=== PATIENT | male | born 1945 | race Two or more races ===

== ENCOUNTER 2017-07-04 11:48 | Inpatient (IN) | payer MEDICARE ==
[~2017-07-04] VITALS: Ht 170.2 cm; Wt 102.1 kg
[2017-07-04] MEDS ORDERED: CLINDAMYCIN 300MG 50 ML IV STA (12:33)
[2017-07-04] MEDS ORDERED: PIPER-TAZ 3.375 GM 50 ML IV STA (12:33)
[2017-07-04 12:37] LABS: BASOPHILS # (AUTO) 0.1 (0.0-0.1); BASOPHILS % 0.4 % (0.0-1.0); EOSINOPHILS # (AUTO) 0.3 (0.0-0.4); EOSINOPHILS % 1.8 % (0.0-6.0); HEMATOCRIT 35.8 % (38.2-49.6); HEMOGLOBIN 11.8 g/dL (14.0-18.0); LYMPHOCYTES # (AUTO) 0.8 (1.0-3.2); LYMPHOCYTES % 5.9 % (18.0-39.1); MEAN CORPUSCULAR HEMOGLOBIN 27.9 pg (28-32); MEAN CORPUSCULAR VOLUME 84.6 fL (81-99); MONOCYTES # (AUTO) 0.7 (0.2-0.8); MONOCYTES % 4.9 % (4.4-11.3); NEUTROPHILS # (AUTO) 12.4 (2.1-6.9); NEUTROPHILS % 86.4 % (38.7-80.0); PLATELET COUNT 365 x10e3/uL (140-360); RED BLOOD COUNT 4.23 x10e6/uL (4.3-5.7); RED CELL DISTRIBUTION WIDTH 13.5 % (11.7-14.4)
[2017-07-04 12:51] LABS: ALBUMIN 2.9 g/dL (3.5-5.0); ALBUMIN/GLOBULIN RATIO 0.6 (0.8-2.0); ANION GAP 13.4 mmol/L (8-16); CREATININE, SERUM 1.38 mg/dL (0.72-1.25); POTASSIUM 4.4 mmol/L (3.5-5.1)
[2017-07-04] MEDS ORDERED: SODIUM CHLORIDE FLUSH 10 ML SYR INJ PRN (13:45)
[2017-07-04] MEDS ORDERED: DEXTROSE 50% SYRINGE 50 ML IV PRN (13:45)
[2017-07-04 13:53] LABS: CLARITY,URINE CLEAR (CLEAR); COLOR,URINE YELLOW (YELLOW); KETONES,URINE NEGATIVE (NEGATIVE); LEUKOCYTE ESTERASE ,URINE NEGATIVE (NEGATIVE); NITRITE,URINE NEGATIVE (NEGATIVE); PROTEIN,URINE DIPSTICK NEGATIVE (NEGATIVE); URINE UROBILINOGEN 0.2 mg/dL (0.2 - 1)
[2017-07-04 13:54] LABS: BILIRUBIN,URINE NEGATIVE (NEGATIVE)
[2017-07-04] MEDS ORDERED: PIPER-TAZ 3.375 GM 50 ML IV SCH (14:00)
[2017-07-04 14:11] LABS: BACTERIA,URINE RARE /HPF; EPITHELIAL CELLS,URINE RARE /LPF
[2017-07-04] MEDS: PIPER-TAZ 3.375 GM 100 ML IV SCH ×2 (14:23→22:00)
[2017-07-04] MEDS: INSULIN REGULAR, HUMAN 100 UNIT/1 ML 3ML VIAL SQ SCH ×2 (16:30→21:20)
[2017-07-04 17:02] VITALS: BP 156/95
[2017-07-04] MEDS ORDERED: PHENYLEPHRINE HCL 1% 10 MG/ML VIAL ONE (17:14)
[2017-07-04] MEDS: CLINDAMYCIN 300MG 50 ML IV SCH ×2 (18:03→23:35)
[2017-07-04 18:07] VITALS: BP 156/95
[2017-07-04 18:13] VITALS: BP 156/95
[2017-07-04] MEDS ORDERED: FENOFIBRATE145 MG PO (18:46)
[2017-07-04] MEDS ORDERED: CLOPIDOGREL75 MG PO (18:49)
[2017-07-04] MEDS ORDERED: ASPIR 8181 MG PO (18:49)
[2017-07-04] MEDS ORDERED: ALPRAZOLAM1 MG PO (18:49)
[2017-07-04] MEDS ORDERED: TAMSULOSIN HCL0.4 MG PO (18:49)
[2017-07-04] MEDS ORDERED: ATORVASTATIN CA10 MG PO (18:49)
[2017-07-04] MEDS ORDERED: PANTOPRAZOLE SO40 MG PO (18:49)
[2017-07-04] MEDS ORDERED: LYRICA75 MG (18:49)
[2017-07-04] MEDS ORDERED: LOSARTAN POTAS100 MG PO (18:49)
[2017-07-04 19:25] VITALS: BP 143/63
[2017-07-04 19:35] VITALS: BP 160/69
[2017-07-04] MEDS: ALPRAZOLAM 1 MG TAB PO SCH (20:47)
[2017-07-04] MEDS ORDERED: SODIUM CHLORIDE 0.9% 250ML 250 ML ONE (21:39)
[2017-07-04] MEDS: HYDROCODONE/APAP 10MG-325MG TAB PO PRN (23:09)
[2017-07-05] VITALS (8 sets, daily range): BP systolic 115–143; BP diastolic 58–71
[2017-07-05] MEDS: PIPER-TAZ 3.375 GM 100 ML IV SCH ×3 (05:40→22:05)
[2017-07-05] MEDS: CLINDAMYCIN 300MG 50 ML IV SCH ×3 (06:40→18:00)
[2017-07-05] MEDS: INSULIN REGULAR, HUMAN 100 UNIT/1 ML 3ML VIAL SQ SCH (07:30)
[2017-07-05] MEDS: ALPRAZOLAM 1 MG TAB PO SCH ×3 (09:00→22:05)
[2017-07-05] MEDS: HYDROCODONE/APAP 10MG-325MG TAB PO PRN ×3 (09:45→18:39)
[2017-07-05] MEDS: SENNOSIDES 8.6 MG TAB PO SCH ×2 (11:15→17:00)
[2017-07-05] MEDS ORDERED: DEXTROSE 50% SYRINGE 50 ML IV PRN (11:15)
[2017-07-05] MEDS: CELECOXIB 200 MG CAP PO SCH ×2 (11:15→17:00)
[2017-07-05] MEDS: INSULIN LISPRO 100 UNIT/1 ML 3ML VIAL SQ SCH ×4 (11:30→21:00)
[2017-07-05] MEDS ORDERED: INSULIN DETEMIR 100 UNIT/ML PEN SQ ONE (12:00)
--- NOTE | 2017-07-05 15:22 | History and Physical ---
PRIMARY CARE PROVIDER: Dr. Quirino Long ENDOSCOPY SPECIALTY TECHNICIAN: Dr. Brandon Rios CHIEF COMPLAINT: Left scrotal swelling, epididymitis and orchitis for the past 3 months. Failed outpatient treatment with oral antibiotics and multiple urologist consultants saw the patient. Baseline elevated blood sugar, uncontrolled diabetes with diet compliancy, drinking soda. A1c per patient is greater than 10. HISTORY: This 71-year-old male with left scrotal swelling, redness and pain consistent with infection in the scrotum, epididymitis and orchitis on examination by Dr. Brandon Rios. The patient failed outpatient treatment. His blood sugar is uncontrolled with both noncompliance with diet and with elevated blood sugar. The patient is compliant with his medication, however, may not be enough per the patient and also due to infection. Patient has poor insight into his condition. He is stating that the swelling is worse since he was admitted to the hospital within 24 hours. Discussed with patient and explained that antibiotic may need some time to work with respect to his infection treatment and also diabetic control. PAST MEDICAL HISTORY 1. Right scrotal infection that was resolved. 2. Uncontrolled diabetes for many years. 3. Morbid obesity. 4. Hypertension. 5. Hyperlipidemia. 6. Diabetic neuropathy. 7. Benign prostatic hyperplasia. 8. Peripheral vascular disease. 9. Chronic obstructive pulmonary disease. 10. Coronary disease with previous stent placement. SOCIAL HISTORY: Patient was a former smoker. No significant alcohol consumption. He lives at home. ALLERGIES: NO KNOWN ALLERGIES. MEDICATIONS: Xanax, aspirin, Lipitor, Plavix, fenofibrate, losartan, Protonix, Lyrica, Flomax. Insulin at home per patient is Tresiba and Victoza. REVIEW OF SYSTEMS: Left scrotal swelling and pain. No chest pain. No shortness of breath. PHYSICAL EXAMINATION GENERAL: The patient has left scrotal pain but not in any respiratory distress. VITAL SIGNS: Temperature is 99. Blood pressure 170/87. Pulse rate is 115, now down to 87. HEENT: Normocephalic, atraumatic, anicteric. NECK: Supple grossly. PULMONARY: Diminished breath sounds. Minimal rhonchi in bilateral lungs. CARDIOVASCULAR: Tachycardia. ABDOMEN: Soft, obese. EXTREMITIES: No cyanosis or edema. Left scrotum is very swollen, very tender, redness and significant phlegmon. NEUROLOGIC: No focal deficit other than diabetic neuropathy. WBC is 14.3, hemoglobin 11.8, hematocrit 36, platelets 265. Chemistries: Sodium 133, potassium 4.4, chloride 100, bicarb 24. BUN is 22 and creatinine 1.4. Glucose is 375. IMPRESSION 1. Left orchitis, edematous with scrotal cellulitis and infection with phlegmon that will develop into an abscess. 2. Uncontrolled diabetes. 3. Obesity. 4. Noncompliance to diet. PLAN: Tighter control of blood sugar. Obtain hemoglobin A1c. IV antibiotics. Dr. Brandon Rios has seen the patient. Will monitor the patient closely. Will get the patient to see a channel man upon discharge. Continue with IV antibiotics. Job#: [id number]
[2017-07-05] MEDS: TAMSULOSIN HCL 0.4 MG CAP PO SCH (16:30)
[2017-07-05] MEDS: ENOXAPARIN SOD INJ 40 MG/0.4 ML SYR SC SCH (17:00)
[2017-07-05] MEDS: PREGABALIN 75 MG CAP PO SCH (17:00)
[2017-07-05] MEDS ORDERED: INSULIN DETEMIR 100 UNIT/ML PEN SQ SCH (21:00)
[2017-07-05] MEDS: FENOFIBRATE 145 MG TAB PO SCH (21:00)
[2017-07-05] MEDS ORDERED: ATORVASTATIN 10 MG TAB PO SCH (21:00)
[2017-07-06] MEDS: CLINDAMYCIN 300MG 50 ML IV SCH ×2 (00:55→06:38)
[2017-07-06 04:00] VITALS: BP 138/63
[2017-07-06] MEDS: PIPER-TAZ 3.375 GM 100 ML IV SCH ×3 (05:00→21:33)
[2017-07-06] MEDS: PANTOPRAZOLE SOD 40 MG TABEC PO SCH (07:30)
[2017-07-06] MEDS: INSULIN LISPRO 100 UNIT/1 ML 3ML VIAL SQ SCH ×7 (07:30→21:00)
[2017-07-06 07:42] LABS: BASOPHILS % 0.2 % (0.0-1.0); EOSINOPHILS # (AUTO) 0.4 (0.0-0.4); EOSINOPHILS % 2.9 % (0.0-6.0); HEMOGLOBIN 10.4 g/dL (14.0-18.0); LYMPHOCYTES # (AUTO) 1.3 (1.0-3.2); LYMPHOCYTES % 9.9 % (18.0-39.1); MEAN CORPUSCULAR HEMOGLOBIN 27.7 pg (28-32); MEAN CORPUSCULAR HGB CONC 32.5 g/dL (31-35); MEAN CORPUSCULAR VOLUME 85.3 fL (81-99); MONOCYTES # (AUTO) 0.8 (0.2-0.8); MONOCYTES % 5.9 % (4.4-11.3); NEUTROPHILS # (AUTO) 10.6 (2.1-6.9); NEUTROPHILS % 80.6 % (38.7-80.0); PLATELET COUNT 311 x10e3/uL (140-360); RED BLOOD COUNT 3.75 x10e6/uL (4.3-5.7); RED CELL DISTRIBUTION WIDTH 13.6 % (11.7-14.4)
[2017-07-06 07:57] VITALS: BP 102/51
[2017-07-06] MEDS: CELECOXIB 200 MG CAP PO SCH ×2 (08:00→17:00)
[2017-07-06 08:21] LABS: ANION GAP 12.4 mmol/L (8-16); CALCIUM 9.2 mg/dL (8.4-10.2); CREATININE, SERUM 1.6 mg/dL (0.72-1.25); POTASSIUM 4.4 mmol/L (3.5-5.1)
[2017-07-06] MEDS: LOSARTAN POTASSIUM 100 MG TAB PO SCH (08:27)
[2017-07-06] MEDS: PREGABALIN 75 MG CAP PO SCH ×2 (08:28→21:32)
[2017-07-06] MEDS: SENNOSIDES 8.6 MG TAB PO SCH ×2 (08:28→17:00)
[2017-07-06] MEDS: ALPRAZOLAM 1 MG TAB PO SCH ×3 (08:31→21:33)
[2017-07-06] MEDS: VANCOMYCIN 1GM/NS 250 ML 250 ML IV SCH ×2 (11:00→23:00)
[2017-07-06] MEDS ORDERED: HYDROMORPHONE 1MG/1ML INJ IV PRN (11:00)
[2017-07-06 12:04] VITALS: BP 147/70
[2017-07-06 16:06] VITALS: BP 118/57
[2017-07-06] MEDS: TAMSULOSIN HCL 0.4 MG CAP PO SCH (16:30)
[2017-07-06] MEDS: ENOXAPARIN SOD INJ 40 MG/0.4 ML SYR SC SCH (17:00)
[2017-07-06 20:00] VITALS: BP 159/76
[2017-07-06] MEDS: INSULIN DETEMIR 100 UNIT/ML PEN SQ SCH (21:00)
[2017-07-06] MEDS: ATORVASTATIN 40 MG TAB PO SCH (21:32)
[2017-07-06] MEDS: FENOFIBRATE 145 MG TAB PO SCH (21:33)
[2017-07-07] VITALS (7 sets, daily range): BP systolic 92–134; BP diastolic 56–71
[2017-07-07] MEDS: HYDROMORPHONE 2MG/ML INJ IV PRN ×3 (01:00→21:50)
[2017-07-07] MEDS: PIPER-TAZ 3.375 GM 100 ML IV SCH ×3 (05:49→21:52)
[2017-07-07] MEDS ORDERED: INSULIN REGULAR, HUMAN 100 UNIT/1 ML 3ML VIAL ONE (07:04)
[2017-07-07 07:06] LABS: BASOPHILS # (AUTO) 0.1 (0.0-0.1); BASOPHILS % 0.5 % (0.0-1.0); EOSINOPHILS # (AUTO) 0.4 (0.0-0.4); EOSINOPHILS % 2.7 % (0.0-6.0); HEMATOCRIT 31.9 % (38.2-49.6); HEMOGLOBIN 10.1 g/dL (14.0-18.0); LYMPHOCYTES # (AUTO) 1.4 (1.0-3.2); LYMPHOCYTES % 9.4 % (18.0-39.1); MEAN CORPUSCULAR HEMOGLOBIN 27.2 pg (28-32); MEAN CORPUSCULAR HGB CONC 31.7 g/dL (31-35); MONOCYTES # (AUTO) 0.9 (0.2-0.8); MONOCYTES % 6.2 % (4.4-11.3); NEUTROPHILS % 80.3 % (38.7-80.0); PLATELET COUNT 338 x10e3/uL (140-360); RED BLOOD COUNT 3.71 x10e6/uL (4.3-5.7); RED CELL DISTRIBUTION WIDTH 13.7 % (11.7-14.4)
[2017-07-07 07:39] LABS: ANION GAP 12.1 mmol/L (8-16); CALCIUM 8.9 mg/dL (8.4-10.2); CREATININE, SERUM 1.73 mg/dL (0.72-1.25); POTASSIUM 4.1 mmol/L (3.5-5.1)
[2017-07-07] MEDS ORDERED: BUPIVACAINE 0.25% 30ML SDV INJ ONE (07:41)
[2017-07-07] MEDS ORDERED: BUPIVACAINE 0.25%/EPI 30ML SDV INJ ONE (07:41)
[2017-07-07] MEDS: ALPRAZOLAM 1 MG TAB PO SCH ×2 (09:00→15:00)
[2017-07-07] MEDS: PREGABALIN 75 MG CAP PO SCH ×2 (09:30→16:30)
[2017-07-07] MEDS: LOSARTAN POTASSIUM 100 MG TAB PO SCH (09:30)
[2017-07-07] MEDS: SENNOSIDES 8.6 MG TAB PO SCH ×2 (09:30→16:30)
[2017-07-07] MEDS: INSULIN LISPRO 100 UNIT/1 ML 3ML VIAL SQ SCH ×7 (09:30→21:00)
[2017-07-07] MEDS: PANTOPRAZOLE SOD 40 MG TABEC PO SCH (09:30)
[2017-07-07] MEDS: HYDROCODONE/APAP 10MG-325MG TAB PO PRN (10:10)
[2017-07-07] MEDS: VANCOMYCIN 1GM/NS 250 ML 250 ML IV SCH ×2 (11:00→23:10)
[2017-07-07] MEDS ORDERED: PROPOFOL IV EMULSION 10 MG/ML 20 ML VIAL ONE (14:21)
[2017-07-07] MEDS ORDERED: ONDANSETRON HCL INJ 2 MG/ML VIAL ONE (14:21)
[2017-07-07] MEDS ORDERED: LIDOCAINE HCL 2% LOCAL INJ 5 ML SDV VIAL INJ ONE (14:21)
[2017-07-07] MEDS ORDERED: SEVOFLURANE INHAL SOLN 250 ML PEN BTL ONE (14:21)
--- NOTE | 2017-07-07 14:54 | Consultation ---
DATE OF CONSULTATION: July 07, 2017 INFECTIOUS DISEASE CONSULTATION REASON FOR CONSULTATION: Scrotal abscess. HISTORY OF PRESENT ILLNESS: This patient, who is a very pleasant 71-year-old male who has history of obesity, history of hypertension, hyperlipidemia, diabetes mellitus, diabetic neuropathy, benign prostatic hypertrophy, peripheral vascular disease, chronic obstructive pulmonary disease, coronary artery disease status post stent placement, comes in with redness and swelling of the scrotum mainly on the left side. The patient had epididymitis and orchitis 3 months ago. He apparently was taking oral antibiotic. He has been seen by several urologists. Patient was finally admitted, underwent debridement. Patient was seen by Dr. Rios and underwent I\T\D. Infectious Disease was consulted today. Patient is telling me he had this for 3 months, but recently it is getting really red and swollen and there was pus draining when he first came. He underwent I\T\D earlier today. He is feeling much better. The dressing is on, fresh from the OR. PAST MEDICAL HISTORY: Obesity, right scrotal infection that was resolved before, uncontrolled diabetes mellitus, hypertension, hyperlipidemia, neuropathy, COPD, coronary artery disease. PAST SURGICAL HISTORY: As above. ALLERGIES: NKA. SOCIAL HISTORY: He denies smoking, drug abuse, alcohol abuse. FAMILY HISTORY: Hypertension and diabetes. MEDICATION: He is on Xanax, aspirin, Lipitor, Plavix, losartan, Flomax, insulin. REVIEW OF SYSTEMS: At the present time, he is doing well. HEENT: There is no headache, visual changes, hearing changes. GI: There is no nausea, no vomiting, no diarrhea. CARDIAC: There is no arrhythmia. NEURO: No seizure activity. SKIN: There are no other rashes. JOINTS: There is no erythema or edema. The patient's laboratory data: His blood cultures are still pending, his wound culture still pending. His white count is 15, hemoglobin 10.1, hematocrit 31. Sodium 135, potassium 4.0, creatinine 1.73. He is currently on insulin, vancomycin, Lyrica, Protonix, Cozaar, piperacillin/tazobactam, Dilaudid. PHYSICAL EXAMINATION GENERAL: He is alert, oriented, does not seem to be in acute distress. VITAL SIGNS: Stable. Currently afebrile. HEENT: He does not appear icteric. NECK: Supple. CHEST: Clear. HEART: S1 and S2. No S3 or S4, no murmur. ABDOMEN: Soft, obese. EXTREMITIES: No edema. SCROTAL AREA: There is erythema, there is edema. IMPRESSION: Abscess status post irrigation and debridement, failed oral antibiotic. I think because of his obesity probably. Concerned about resistance. Will get a central line in him. To get intravenous antibiotic. Will consult IR. Will follow with a vancomycin trough. Will follow with you. Job#: [id number] EV
[2017-07-07] MEDS: TAMSULOSIN HCL 0.4 MG CAP PO SCH (16:30)
[2017-07-07] MEDS ORDERED: MIDAZOLAM HCL 2 MG/2 ML VIAL ONE (19:45)
[2017-07-07] MEDS ORDERED: FENTANYL CITRATE/PF 100MCG/2 ML INJ ONE (19:45)
[2017-07-07] MEDS: INSULIN DETEMIR 100 UNIT/ML PEN SQ SCH (21:00)
[2017-07-07] MEDS: ATORVASTATIN 40 MG TAB PO SCH (21:52)
[2017-07-07] MEDS: FENOFIBRATE 145 MG TAB PO SCH (21:52)
[2017-07-07] MEDS ORDERED: SODIUM CHLORIDE 0.9% 250ML 250 ML ONE (23:09)
[2017-07-08] VITALS (7 sets, daily range): BP systolic 103–125; BP diastolic 60–72
[2017-07-08] MEDS: ALPRAZOLAM 1 MG TAB PO SCH ×4 (02:55→21:00)
[2017-07-08] MEDS: HYDROCODONE/APAP 10MG-325MG TAB PO PRN ×2 (05:00→12:30)
[2017-07-08] MEDS: HYDROMORPHONE 2MG/ML INJ IV PRN ×2 (05:19→22:30)
[2017-07-08] MEDS: PIPER-TAZ 3.375 GM 100 ML IV SCH (06:17)
[2017-07-08] MEDS: INSULIN LISPRO 100 UNIT/1 ML 3ML VIAL SQ SCH ×7 (07:45→21:00)
[2017-07-08] MEDS: PANTOPRAZOLE SOD 40 MG TABEC PO SCH (08:10)
[2017-07-08] MEDS: SENNOSIDES 8.6 MG TAB PO SCH ×2 (08:15→16:35)
[2017-07-08] MEDS: PREGABALIN 75 MG CAP PO SCH ×2 (08:15→16:35)
[2017-07-08] MEDS: LOSARTAN POTASSIUM 100 MG TAB PO SCH (08:15)
[2017-07-08] MEDS: CEFEPIME HCL 2 GM VIAL IV SCH (11:45)
[2017-07-08] MEDS: TAMSULOSIN HCL 0.4 MG CAP PO SCH (16:35)
[2017-07-08] MEDS: INSULIN DETEMIR 100 UNIT/ML PEN SQ SCH (21:00)
[2017-07-08] MEDS: FENOFIBRATE 145 MG TAB PO SCH (21:47)
[2017-07-08] MEDS: ATORVASTATIN 40 MG TAB PO SCH (21:47)
[2017-07-09] VITALS: BP 136/71
[2017-07-09] MEDS: HYDROMORPHONE 2MG/ML INJ IV PRN ×2 (03:16→06:19)
[2017-07-09 04:00] VITALS: BP 139/70
[2017-07-09] MEDS: ALPRAZOLAM 1 MG TAB PO SCH ×4 (04:05→21:00)
[2017-07-09 07:19] LABS: BASOPHILS # (AUTO) 0.1 (0.0-0.1); BASOPHILS % 0.6 % (0.0-1.0); EOSINOPHILS # (AUTO) 0.5 (0.0-0.4); EOSINOPHILS % 4.1 % (0.0-6.0); HEMATOCRIT 32.1 % (38.2-49.6); HEMOGLOBIN 9.9 g/dL (14.0-18.0); LYMPHOCYTES % 17.7 % (18.0-39.1); MEAN CORPUSCULAR HEMOGLOBIN 27.1 pg (28-32); MEAN CORPUSCULAR HGB CONC 30.8 g/dL (31-35); MEAN CORPUSCULAR VOLUME 87.9 fL (81-99); MONOCYTES # (AUTO) 0.8 (0.2-0.8); MONOCYTES % 7.5 % (4.4-11.3); NEUTROPHILS # (AUTO) 7.7 (2.1-6.9); NEUTROPHILS % 68.7 % (38.7-80.0); PLATELET COUNT 368 x10e3/uL (140-360); RED BLOOD COUNT 3.65 x10e6/uL (4.3-5.7); RED CELL DISTRIBUTION WIDTH 13.6 % (11.7-14.4)
[2017-07-09] MEDS: INSULIN LISPRO 100 UNIT/1 ML 3ML VIAL SQ SCH ×7 (07:30→21:00)
[2017-07-09] MEDS: PANTOPRAZOLE SOD 40 MG TABEC PO SCH (07:30)
[2017-07-09] MEDS: INSULIN DETEMIR 100 UNIT/ML PEN SQ SCH ×2 (07:30→21:00)
[2017-07-09 07:52] LABS: CALCIUM 9.7 mg/dL (8.4-10.2); CREATININE, SERUM 1.4 mg/dL (0.72-1.25)
[2017-07-09] MEDS: SENNOSIDES 8.6 MG TAB PO SCH ×2 (09:00→17:00)
[2017-07-09] MEDS: PREGABALIN 75 MG CAP PO SCH ×2 (09:00→17:00)
[2017-07-09] MEDS: LOSARTAN POTASSIUM 100 MG TAB PO SCH (09:00)
[2017-07-09 09:06] VITALS: BP 149/88
[2017-07-09] MEDS: CEFEPIME HCL 2 GM VIAL IV SCH (11:00)
[2017-07-09] MEDS: HYDROCODONE/APAP 10MG-325MG TAB PO PRN ×2 (15:28→21:30)
[2017-07-09 16:00] VITALS: BP 133/75
[2017-07-09] MEDS: TAMSULOSIN HCL 0.4 MG CAP PO SCH (16:30)
--- NOTE | 2017-07-09 16:55 | Diagnostic Imaging Report ---
PROCEDURE: A single AP view of the chest. COMPARISON: None. INDICATIONS: picc line placement FINDINGS: Lines/tubes: Right PICC in place with tip overlying mid SVC. Lungs: Low lung volumes. Pulmonary vascular congestion and mild interstitial edema. Pleura: There is no significant pleural effusion or pneumothorax. Heart and mediastinum: The heart and the mediastinum are unremarkable. Bones: No acute bony abnormality. IMPRESSION: Right PICC in place with tip overlying mid SVC. No visible pneumothorax. Pulmonary vascular congestion and mild interstitial edema. Dictated by: Maicol Cardoza M.D. on 07/09/2017 at 16:56 Electronically approved by: Maicol Cardoza M.D. on 07/09/2017 at 16:56
[2017-07-09 20:00] VITALS: BP 121/69
[2017-07-09] MEDS: FENOFIBRATE 145 MG TAB PO SCH (21:00)
[2017-07-09] MEDS: ATORVASTATIN 40 MG TAB PO SCH (21:00)
[2017-07-09] MEDS ORDERED: MEROPENEM 1GRAM 1 GM in SODIUM CHLORIDE 0.9% 100 ML 100 ML IV SCH (21:00)
[2017-07-09] MEDS: MEROPENEM 1 GM VIAL IV SCH (21:00)
[2017-07-10] VITALS: BP 127/63
[2017-07-10 04:00] VITALS: BP 142/69
[2017-07-10] MEDS: HYDROCODONE/APAP 10MG-325MG TAB PO PRN (06:35)
[2017-07-10 07:20] VITALS: BP 155/88
[2017-07-10] MEDS: INSULIN DETEMIR 100 UNIT/ML PEN SQ SCH (07:30)
[2017-07-10] MEDS: INSULIN LISPRO 100 UNIT/1 ML 3ML VIAL SQ SCH ×4 (07:30→11:30)
[2017-07-10] MEDS: PANTOPRAZOLE SOD 40 MG TABEC PO SCH (08:06)
[2017-07-10 08:50] VITALS: BP 155/88
[2017-07-10] MEDS: ALPRAZOLAM 1 MG TAB PO SCH (09:00)
[2017-07-10] MEDS: SENNOSIDES 8.6 MG TAB PO SCH (09:26)
[2017-07-10] MEDS: MEROPENEM 1 GM VIAL IV SCH (09:26)
[2017-07-10] MEDS: LOSARTAN POTASSIUM 100 MG TAB PO SCH (09:26)
[2017-07-10] MEDS: PREGABALIN 75 MG CAP PO SCH (09:26)
[2017-07-10 11:58] VITALS: BP 146/84
[2017-07-10] MEDS ORDERED: SENNA LAX8.6 MG PO (12:44)
[2017-07-10] MEDS ORDERED: TYLENOL WITH C1 EACH PO (12:45)
[2017-07-10] MEDS ORDERED: ZOFRAN ODT4 MG SL (12:46)
[2017-07-10] MEDS ORDERED: ULTRAM50 MG PO (12:47)
--- NOTE | 2017-07-10 16:51 | Discharge Summary ---
CONSULTANTS: 1. Dr. Brandon Rios. 2. Dr. Lizy Cheek. FINAL DIAGNOSES: 1. Left scrotal abscess associated with scrotal cellulitis, epididymitis and orchitis. 2. Status post incision and drainage of left scrotum secondary to abscess. 3. Extended-spectrum beta-lactamase Escherichia coli multidrug resistant bacterial infection. 4. Status post sepsis due to infection. 5. Status post leukocytosis and fever. 6. Severe pain to the left scrotal area, improving. 7. Uncontrolled diabetes type 2 with glycohemoglobin A1c of 10.0. SUMMARY: Patient is a 71-year-old male with uncontrolled diabetes, hemoglobin A1c of 10.0, on insulin at home, a question of compliancy. However, the patient came in with left scrotal swelling and redness with multiple findings as mentioned above. Patient has an abscess. The patient is status post incision and drainage done by Dr. Brandon Rios. The patient's wound culture grew out to be ESBL. Arrangement has been made for the patient to get home health for wound care and then IV antibiotic. The patient had a right upper extremity PICC line placement. Antibiotics have been arranged. The patient will continue with his treatment as an outpatient with antibiotics per Dr. Cheek and to follow up with wound and scrotal care with Dr. Brandon Rios. Discharge medications as follows: 1. Resume home medication. 2. Tresiba FlexPen 50 units daily. 3. Senna-S 1 tablet b.i.d. 4. NovoLog FlexPen 10 units before meals. 5. Tylenol No. 3 q.4 p.r.n. for pain. 6. Zofran ODT 4 mg q.4 p.r.n. for nausea and vomiting. 7. Tramadol 50 mg q.6 p.r.n. for pain. Again, the patient will need to follow up closely for his wound care and IV antibiotics and tighter control of his diabetes. I advised the patient to follow up with his family doctor on close basis for his diabetes control. Job#: [id number] EV
== END 2017-07-10 13:06 | disposition home health service (06) | DRG 728 ==
LOC: ER 11:48 → ERHOLD 13:09 → MED/SURG3 15:52
PROVIDERS: ADMIT Internal Medicine; ATTEND Internal Medicine
PROC: 0VB50ZZ Excision of Scrotum, Open Approach (ICD-10-PCS; 2017-07-04)
PROC: 02HV33Z Insertion of Infusion Device into Superior Vena Cava, Percutaneous Approach (ICD-10-PCS; principal; 2017-07-09)
DX: N45.3 Epididymo-orchitis (principal); L03.90 Cellulitis, unspecified; N39.0 Urinary tract infection, site not specified; N17.9 Acute kidney failure, unspecified; Z68.35 Body mass index [BMI] 35.0-35.9, adult; J44.9 Chronic obstructive pulmonary disease, unspecified; N50.89 Other specified disorders of the male genital organs; B96.20 Unspecified Escherichia coli [E. coli] as the cause of diseases classified elsewhere; Z16.12 Extended spectrum beta lactamase (ESBL) resistance; E11.65 Type 2 diabetes mellitus with hyperglycemia; E11.43 Type 2 diabetes mellitus with diabetic autonomic (poly)neuropathy; Z79.4 Long term (current) use of insulin; N40.0 Benign prostatic hyperplasia without lower urinary tract symptoms; E78.5 Hyperlipidemia, unspecified; I25.10 Atherosclerotic heart disease of native coronary artery without angina pectoris; Z95.5 Presence of coronary angioplasty implant and graft; D64.9 Anemia, unspecified; I12.9 Hypertensive chronic kidney disease with stage 1 through stage 4 chronic kidney disease, or unspecified chronic kidney disease; E11.22 Type 2 diabetes mellitus with diabetic chronic kidney disease; N18.9 Chronic kidney disease, unspecified; Z91.11 Patient's noncompliance with dietary regimen; E66.9 Obesity, unspecified; E86.0 Dehydration
CPT/HCPCS: 36415; 36569; 71045; 80048; 80053; 80202; 81001; 82948; 83036; 84443; 85025; 85651; 87040; 87071; 87075; 87086; 87186; 87205; 88304; 93005; 99284; J0692; J1650; J2001; J2185; J2250; J2370; J2405; J2543; J3370; J7050

== ENCOUNTER 2020-07-15 13:55 | Emergency (ER) | payer MEDICARE ==
[~2020-07-15] VITALS: Ht 170.2 cm; Wt 102.1 kg
[~2020-07-15 13:55] MED LIST: ALPRAZOLAM1 MG PO; ASPIR 8181 MG PO; ATORVASTATIN CA10 MG PO; CLOPIDOGREL75 MG PO; FENOFIBRATE145 MG PO; LOSARTAN POTAS100 MG PO; LYRICA75 MG; PANTOPRAZOLE SO40 MG PO; SENNA LAX8.6 MG PO; TAMSULOSIN HCL0.4 MG PO; TYLENOL WITH C1 EACH PO; ULTRAM50 MG PO; ZOFRAN ODT4 MG SL
[2020-07-15 14:55] LABS: BASOPHILS # (AUTO) 0.1 (0.0-0.1); BASOPHILS % 0.4 % (0.0-1.0); EOSINOPHILS # (AUTO) 0.1 (0.0-0.4); EOSINOPHILS % 0.7 % (0.0-6.0); HEMATOCRIT 41.5 % (38.2-49.6); LYMPHOCYTES # (AUTO) 1.2 (1.0-3.2); LYMPHOCYTES % 10.3 % (18.0-39.1); MEAN CORPUSCULAR HEMOGLOBIN 27.8 pg (28-32); MEAN CORPUSCULAR HGB CONC 31.3 g/dL (31-35); MEAN CORPUSCULAR VOLUME 88.9 fL (81-99); MONOCYTES # (AUTO) 0.5 (0.2-0.8); MONOCYTES % 3.9 % (4.4-11.3); NEUTROPHILS # (AUTO) 9.6 (2.1-6.9); NEUTROPHILS % 83.1 % (38.7-80.0); PLATELET COUNT 355 x10e3/uL (140-360); RED BLOOD COUNT 4.67 x10e6/uL (4.3-5.7); RED CELL DISTRIBUTION WIDTH 15.2 % (11.7-14.4)
[2020-07-15 15:17] LABS: ALBUMIN 2.8 g/dL (3.5-5.0); ALBUMIN/GLOBULIN RATIO 0.7 (0.8-2.0); ANION GAP 17.6 mmol/L (8-16); CALCIUM 9.4 mg/dL (8.4-10.2); CREATININE, SERUM 1.46 mg/dL (0.72-1.25); POTASSIUM 4.6 mmol/L (3.5-5.1)
[2020-07-15] MEDS ORDERED: FUROSEMIDE INJ 10 MG/ML 4 ML VIAL IV ONE (16:15)
[2020-07-15] MEDS ORDERED: INSULIN REGULAR, HUMAN 100 UNIT/1 ML 3ML VIAL IV ONE (16:15)
== END 2020-07-15 19:00 | disposition home or self-care (01) ==
LOC: ER 16:13
DX: R06.00 Dyspnea, unspecified (principal); I50.9 Heart failure, unspecified; R73.9 Hyperglycemia, unspecified; N28.9 Disorder of kidney and ureter, unspecified; R74.01 Elevation of levels of liver transaminase levels; E88.09 Other disorders of plasma-protein metabolism, not elsewhere classified; Z20.822 Contact with and (suspected) exposure to COVID-19
CPT/HCPCS: 36415; 71045; 80053; 83880; 85025; 93005; 93306; 99283; J1940; U0002; J1817

== ENCOUNTER 2020-09-28 12:24 | Emergency (ER) | payer MEDICARE ==
[~2020-09-28] VITALS: Ht 170.2 cm; Wt 104.3 kg
[2020-09-28] MEDS ORDERED: DEXAMETHASONE SOD PHOS INJ 4 MG/ML VIAL ONE (12:53)
[2020-09-28] MEDS: DEXAMETHASONE SOD PHOS INJ 4 MG/ML VIAL IM ONE (12:55)
== END 2020-09-28 12:55 | disposition home or self-care (01) ==
LOC: FSED 12:30
DX: J84.10 Pulmonary fibrosis, unspecified (principal); I10 Essential (primary) hypertension; E11.9 Type 2 diabetes mellitus without complications; J44.9 Chronic obstructive pulmonary disease, unspecified; E78.5 Hyperlipidemia, unspecified; I25.10 Atherosclerotic heart disease of native coronary artery without angina pectoris
CPT/HCPCS: 96372; 99282; J1100

== ENCOUNTER 2020-10-30 10:19 | Emergency (ER) | payer MEDICARE ==
[~2020-10-30] VITALS: Ht 167.6 cm; Wt 104.3 kg
[2020-10-30] MEDS ORDERED: PREDNISONE20 MG PO (11:24)
[2020-10-30] MEDS ORDERED: CEFDINIR300 MG PO (11:24)
== END 2020-10-30 11:50 | disposition home or self-care (01) ==
LOC: FSED 10:43
DX: L03.115 Cellulitis of right lower limb (principal); J44.9 Chronic obstructive pulmonary disease, unspecified; I25.10 Atherosclerotic heart disease of native coronary artery without angina pectoris; E11.22 Type 2 diabetes mellitus with diabetic chronic kidney disease; I12.9 Hypertensive chronic kidney disease with stage 1 through stage 4 chronic kidney disease, or unspecified chronic kidney disease; N18.9 Chronic kidney disease, unspecified; E78.5 Hyperlipidemia, unspecified; Z79.82 Long term (current) use of aspirin; Z98.61 Coronary angioplasty status
CPT/HCPCS: 80053; 85025; 99283